=== PATIENT | male | born 1935 | race African-American/Black ===

== ENCOUNTER → 2016-10-14 | Outpatient (CLI) | payer OTHER ==
[~2016-10-14] MED LIST: CARVEDILOL12.5 MG PO; CLONIDINE HCL0.2 M2 PO; COREG3.125 MG PO; DAILY VITE1 EACH PO; DIGOXIN125 MCG PO; DOCUSATE SODIU100 MG PO; DOXAZOSIN MESYLA4 MG PO; HUMALOG100 UNIT/1; IBUPROFEN 400400 M2 PO; IMDUR 60 MG TAB60 M1 PO; ISOSORBIDE MONO30 M1 PO; K-DUR 20 MEQ T20 MEQ PO; LANTUSSOLASTAR; LASIX 40 MG TAB40 M2 PO; LIPITOR40 MG PO; LISINOPRIL10 MG PO; MAPAP500 M1; NORVASC10 MG PO; PLAVIX 75 MG TA75 M1 PO; POTASSIUM20 PO; SERTRALINE HCL50 MG PO; VITAMIN D3400 UNIT PO; ZESTRIL5 MG PO
== END ==
LOC: SPEECH 09:04 → RAD 09:04
DX: R13.12 Dysphagia, oropharyngeal phase (principal)

== ENCOUNTER 2017-04-01 06:15 | Inpatient (IN) | payer OTHER ==
[~2017-04-01] VITALS: Ht 182.9 cm; Wt 92.9 kg
[2017-04-01 06:20] VITALS: BP 117/89
[2017-04-01 06:47] LABS: HEMOGLOBIN 12.7 gm/dL (14.0-18.0); MCH 24.7 pg (26.0-34.0); MCHC 31.8 g/dL (28.0-37.0); MCV 77.6 fL (80.0-100.0); RBC 5.15 mil/uL (4.50-6.00); RDW 15.2 % (10.5-14.5); WBC 10.2 thou/uL (4.0-11.0)
[2017-04-01] MEDS ORDERED: TYLENOL325 MG PO (06:47)
[2017-04-01] MEDS ORDERED: ARICEPT 5 MG TAB5 MG PO (06:48)
[2017-04-01] MEDS ORDERED: VITAMINC500 PO (06:49)
[2017-04-01] MEDS ORDERED: KLOR-CON 1010 MEQ PO (06:50)
[2017-04-01] MEDS ORDERED: BOUDREAUXS28 GM TP (06:52)
[2017-04-01] MEDS ORDERED: ZOLOFT50 MG PO (06:53)
[2017-04-01 06:54] LABS: URINE BILIRUBIN NEGATIVE (Negative); URINE BLOOD NEGATIVE (Negative); URINE CLARITY CLEAR; URINE COLOR YELLOW; URINE GLUCOSE-RANDOM* NEGATIVE (Negative); URINE KETONES NEGATIVE (Negative); URINE LEUKOCYTES-REFLEX NEGATIVE (Negative); URINE NITRITE-REFLEX NEGATIVE (Negative); URINE PROTEIN (DIPSTICK) NEGATIVE (Negative); URINE SPECIFIC GRAVITY 1.015 (1.005-1.035); URINE UROBILINOGEN 0.2 E.U./dl (0.2-1.0)
[2017-04-01 06:57] LABS: CALCIUM 9.5 mg/dL (8.5-10.1); CREATININE 1.3 mg/dL (0.7-1.3); POTASSIUM 3.9 mmol/L (3.5-5.1)
[2017-04-01 07:03] LABS: ALBUMIN 3.2 g/dL (3.4-5.0); TOTAL BILIRUBIN 0.4 mg/dL (<0.1-1.0); TOTAL PROTEIN 6.6 g/dL (6.4-8.2)
[2017-04-01 12:40] VITALS: BP 166/87
[2017-04-01 12:53] VITALS: BP 148/74
[2017-04-01 13:30] VITALS: BP 173/92
[2017-04-01 17:04] VITALS: BP 155/77
[2017-04-01 22:48] VITALS: BP 139/69
[2017-04-02 04:00] VITALS: BP 142/58; BP 163/81
[2017-04-02 07:35] VITALS: BP 153/66
[2017-04-02 16:10] VITALS: BP 160/71
[2017-04-02 20:30] VITALS: BP 166/72
[2017-04-03 04:05] LABS: ABSOLUTE NEUTROPHILS 5.5 thou/uL (1.4-8.2); BASOPHILS 0.4 % (0.0-2.0); EOSINOPHILS 1.8 % (0.0-3.0); HEMATOCRIT 36.1 % (42.0-52.0); HEMOGLOBIN 11.5 gm/dL (14.0-18.0); LYMPHOCYTES 17.6 % (24.0-44.0); MCHC 31.9 g/dL (28.0-37.0); MCV 78.4 fL (80.0-100.0); PLATELET COUNT 142 thou/uL (150-400); POLYS 71.2 % (36.0-66.0); RBC 4.61 mil/uL (4.50-6.00); WBC 7.7 thou/uL (4.0-11.0)
[2017-04-03 04:27] LABS: CALCIUM 8.4 mg/dL (8.5-10.1); POTASSIUM 3.2 mmol/L (3.5-5.1)
[2017-04-03 04:30] VITALS: BP 166/72
[2017-04-03 07:58] VITALS: BP 150/86
[2017-04-03 09:51] VITALS: BP 150/86
[2017-04-03 11:04] LABS: % SATURATION 18 % (20-39); IRON 44 ug/dL (65-175); TIBC 238 ug/dL (250-450)
[2017-04-03 14:35] VITALS: BP 155/75
[2017-04-03 16:14] VITALS: BP 147/77
[2017-04-03 20:47] VITALS: BP 149/67
[2017-04-04] VITALS: BP 143/80
[2017-04-04 03:00] VITALS: BP 176/95
[2017-04-04 07:30] VITALS: BP 141/81
[2017-04-04 15:15] VITALS: BP 160/88
== END 2017-04-04 17:00 | DRG 853 ==
LOC: ER 06:15 → EROBS 08:44 → 4E 08:44
PROVIDERS: Emergency Medicine; Family Medicine; Internal Medicine Gastroenterology
DX: A41.9 Sepsis, unspecified organism (principal); E43 Unspecified severe protein-calorie malnutrition; I69.351 Hemiplegia and hemiparesis following cerebral infarction affecting right dominant side; K55.1 Chronic vascular disorders of intestine; K52.9 Noninfective gastroenteritis and colitis, unspecified; E11.9 Type 2 diabetes mellitus without complications; I50.9 Heart failure, unspecified; Z96.659 Presence of unspecified artificial knee joint; I11.0 Hypertensive heart disease with heart failure; G30.9 Alzheimer's disease, unspecified; F02.80 Dementia in other diseases classified elsewhere, unspecified severity, without behavioral disturbance, psychotic disturbance, mood disturbance, and anxiety; E78.5 Hyperlipidemia, unspecified; I25.10 Atherosclerotic heart disease of native coronary artery without angina pectoris; I48.91 Unspecified atrial fibrillation; N32.9 Bladder disorder, unspecified; N28.89 Other specified disorders of kidney and ureter; Z79.899 Other long term (current) drug therapy; Z95.5 Presence of coronary angioplasty implant and graft; Z28.21 Immunization not carried out because of patient refusal
CPT/HCPCS: 10084

== ENCOUNTER → 2017-05-02 | Outpatient (CLI) | payer OTHER ==
[~2017-05-02] MED LIST changes: +ARICEPT 5 MG TAB5 MG PO; +BOUDREAUXS28 GM TP; +KLOR-CON 1010 MEQ PO; +TYLENOL325 MG PO; +VITAMINC500 PO; +ZOLOFT50 MG PO
== END ==
LOC: CAT 07:19
DX: N28.89 Other specified disorders of kidney and ureter (principal); K76.0 Fatty (change of) liver, not elsewhere classified; R93.422 Abnormal radiologic findings on diagnostic imaging of left kidney

== ENCOUNTER → 2017-11-12 | Outpatient (CLI) | payer OTHER ==
[2017-11-12 09:51] LABS: CREATININE 1.7 mg/dL (0.7-1.3)
== END ==
LOC: CAT 09:19
PROVIDERS: Family Medicine
DX: K42.9 Umbilical hernia without obstruction or gangrene (principal); N28.1 Cyst of kidney, acquired; J90 Pleural effusion, not elsewhere classified; I70.0 Atherosclerosis of aorta; N20.0 Calculus of kidney; D73.4 Cyst of spleen; N40.0 Benign prostatic hyperplasia without lower urinary tract symptoms; N32.9 Bladder disorder, unspecified; M25.78 Osteophyte, vertebrae; M48.061 Spinal stenosis, lumbar region without neurogenic claudication; M48.02 Spinal stenosis, cervical region; I11.0 Hypertensive heart disease with heart failure; I50.9 Heart failure, unspecified; E11.9 Type 2 diabetes mellitus without complications; E78.5 Hyperlipidemia, unspecified; I48.91 Unspecified atrial fibrillation; I25.10 Atherosclerotic heart disease of native coronary artery without angina pectoris; Z79.4 Long term (current) use of insulin

== ENCOUNTER 2018-02-11 16:53 | Inpatient (IN) | payer OTHER ==
[~2018-02-11] VITALS: Ht 175.3 cm; Wt 87.6 kg
[2018-02-11 17:04] VITALS: BP 128/54
[2018-02-11 17:37] LABS: HEMATOCRIT 21.3 % (42.0-52.0); MCH 21.6 pg (26.0-34.0); MCHC 29.7 g/dL (28.0-37.0); MCV 72.7 fL (80.0-100.0); PLATELET COUNT 173 thou/uL (150-400); RBC 2.93 mil/uL (4.50-6.00); RDW 17.5 % (10.5-14.5); WBC 7.4 thou/uL (4.0-11.0)
[2018-02-11 17:40] LABS: HEMOGLOBIN 6.3 gm/dL (14.0-18.0)
[2018-02-11 17:44] LABS: CALCIUM 9.1 mg/dL (8.5-10.1); INR 1.5; POTASSIUM 3.7 mmol/L (3.5-5.1); PROTIME 15.9 Seconds (9.3-11.4)
[2018-02-11 17:50] LABS: ALBUMIN 2.9 g/dL (3.4-5.0); TOTAL BILIRUBIN 0.3 mg/dL (<0.1-1.0); TOTAL PROTEIN 5.7 g/dL (6.4-8.2)
[2018-02-11 18:06] LABS: ABSOLUTE NEUTROPHILS 5.8 thou/uL (1.4-8.2); ANISOCYTOSIS 1+; MICROCYTES 1+
[2018-02-11 18:07] LABS: HYPOCHROMASIA 2+; POLYCHROMASIA OCCASIONAL
[2018-02-11 18:12] VITALS: BP 127/49
[2018-02-11] MEDS ORDERED: ELIQUIS5 MG PO (18:52)
[2018-02-11] MEDS ORDERED: HYDROCODONE-AP1 EAC6 PO (18:54)
[2018-02-11] MEDS ORDERED: ONDANSETRON HCL4 M2 PO (18:55)
[2018-02-11] MEDS ORDERED: CETIRIZINE HCL5 MG PO (18:55)
[2018-02-11] MEDS ORDERED: LEVEMIR SUBQ (18:56)
[2018-02-11] MEDS ORDERED: MAGNESIUM400 MG PO (18:57)
[2018-02-11 19:05] VITALS: BP 120/40
[2018-02-11 19:30] VITALS: BP 136/68
[2018-02-11 20:28] VITALS: BP 153/59; BP 153/63
[2018-02-12] VITALS (7 sets, daily range): BP systolic 137–171; BP diastolic 58–75
[2018-02-12 00:41] LABS: HEMATOCRIT 23.8 % (42.0-52.0); HEMOGLOBIN 7.2 gm/dL (14.0-18.0); MCH 23.1 pg (26.0-34.0); MCHC 30.1 g/dL (28.0-37.0); MCV 76.8 fL (80.0-100.0); PLATELET COUNT 160 thou/uL (150-400); RBC 3.11 mil/uL (4.50-6.00); RDW 19.2 % (10.5-14.5); WBC 7.9 thou/uL (4.0-11.0)
[2018-02-12 00:51] LABS: CALCIUM 8.7 mg/dL (8.5-10.1); CREATININE 1.8 mg/dL (0.7-1.3); MAGNESIUM 1.7 mg/dL (1.8-2.4); POTASSIUM 3.1 mmol/L (3.5-5.1)
[2018-02-12 01:16] LABS: ABSOLUTE NEUTROPHILS 4.7 thou/uL (1.4-8.2); METAMYELOCYTES 1 %
[2018-02-12 01:18] LABS: ANISOCYTOSIS 2+; HYPOCHROMASIA 1+; LARGE PLATELETS RARE; MICROCYTES 1+; PLATELET ESTIMATE NORMAL; POLYCHROMASIA 1+
--- NOTE | 2018-02-12 03:47 | NUR ---
PATIENT IS A DNR. PATIENT IS ALERT TO SELF. PATIENT WILL ASK SAME QUESTIONS MULT TIMES. PATIENT IS INCONTIENT. PATIENT CAN TURN SELF. PATIENT IS WHEELE CHAIR BOUND. PATIENT HAD ONE UNIT OF BLOOD. PATIENT IS ACHS. PATIENT HAS BEEN NPO SENSE MIDNIGHT. PATIENTS LBM WAS THE 26TH. PATIENT HAS SWELLING TO BOTH LOWER EXTREMITIES ALTHOUGH, THE RIGHT IS MORE SWOLLEN. 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 PATIENT HAS A PACEMAKER. PATIENT IS A FIB ON TELE. PATIENT IS RESTING COMFORTABLEY IN BED. WCM. PATIENT IS PROGRESSING TO GOALS.
--- NOTE | 2018-02-12 04:31 | NUR ---
PATIENT DOES HAVE LARGE AMOUNTS OF BLOOD COMING FROM RECUM. PROVIDER AWARE. BP STABLE, HGB 7.3 ONE UNIT OF RBC GIVEN. WCM.
[2018-02-12 07:28] LABS: HEMATOCRIT 23.2 % (42.0-52.0)
--- NOTE | 2018-02-12 10:40 | NUR ---
ASSESSMENT: CM REVIEWED CHART AND MET WITH PATIENT AT THE BEDSIDE. PT WAS ADMITTED WITH LOW HEMOGLOBIN AND GI WAS CONSULTED. 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 PT REPORTS HE NORMALLY USES A WHEELCHAIR AT THE FACILITY. 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 CM ATTEMPTED TO CONTACT LIASON AT [facility] TO NOTIFY AND FAXED UPDATED CLINICAL TO FACILITY. CM ATTEMPTED TO CONTACT PATIENT DAUGHTER/GINA BECKFORD BUT VM WAS LEFT. CM WILL CONTINUE TO FOLLOW TO ASSIST NEEDED.
--- NOTE | 2018-02-12 19:51 | NUR ---
PT CONFUSED. DAUGHTER AT BEDSIDE AND UPDATED. INCONT OF BRN LOOSE STOOL X1 TODAY. STOOL CULTURE SENT. PLAN FOR PT TO BE NPO AFTER MN FOR POSSIBLE FLEX SIG. TURNED Q2 HOURS. INCONTINENT OF LARGE AMOUNTS OF URINE. REPORT GIVEN TO WIRE STRIPPER RN.
[2018-02-13 04:45] VITALS: BP 154/65
--- NOTE | 2018-02-13 07:37 | NUR ---
PATIENT IS ALERT TO SELF. PATIENT IS FORGETFUL. PATIENT HAS BEEN NPO SENSE MIDNIGHT. PATIENT IS BEDREST PATIENT TURNS SELF. PATIENT IS NSR, SA, OR AFIB ON TELE. PATIENT IS ACHS ACCUCHECKS. PAITENT IS INCONTIENT. PATIENT LBM WAS THE . PATIENT IS FROM [employer]. PATIENT IS PENDING FLEX SIG TODAY. PATIENT IS RESTING COMFORTABLEY IN BED. WCM. PATIENT IS PROGERSSING TO GOALS. PATIENT GOT A BATH THIS SHIFT.
[2018-02-13 08:16] LABS: HEMATOCRIT 22.1 % (42.0-52.0); HEMOGLOBIN 6.7 gm/dL (14.0-18.0); MCHC 30.1 g/dL (28.0-37.0); MCV 76.3 fL (80.0-100.0); RBC 2.89 mil/uL (4.50-6.00); RDW 19.7 % (10.5-14.5); WBC 9.2 thou/uL (4.0-11.0)
[2018-02-13 08:19] VITALS: BP 157/66
[2018-02-13 08:23] LABS: CALCIUM 8.4 mg/dL (8.5-10.1); CREATININE 1.5 mg/dL (0.7-1.3); POTASSIUM 3.2 mmol/L (3.5-5.1)
--- NOTE | 2018-02-13 10:14 | NUR ---
Assumed care of patient at 0700. Discussed with GI lab, to clarify plans for flex sig. Labs done, results called, plans to transfuse 1 unit PRBCs as well. Will update family and obtain informed consent.
[2018-02-13 11:46] VITALS: BP 152/66; BP 154/88; BP 155/64
[2018-02-13 13:17] VITALS: BP 173/76
--- NOTE | 2018-02-13 13:56 | NUR ---
ASSUMED CARE AT 1100, SHIFT ASSESSMENT DONE. SHORTLY AFTER REPORT, PATIENT LEFT THE FLOOR FOR A FLEX SIG. HGB THIS AM WAS 6.7, 1 UNIT OF PRBC ORDERED, ADMINSITERED DURING PROCEDURE. PATIENT CAME UP AT 1315. ADVANCED TO CARB CONTROL DIET. DENIES ANY NAUSEA, PAIN AT THIS MOMENT. WILL CONTINUE TO ASSESS AND ASSIST WITH ADLs NEEDED.
--- NOTE | 2018-02-13 15:05 | NUR ---
ON-GOING ASSESSMENT: CM REVIEWED CHART AND SPOKE WITH ATTENDING PHYSICIAN. PATIENT IS POSSIBLE DISCHARGE OVER THE WEEKEND. PT HAD FLEX-SIG TODAY. IF PATIENT IS STABLE TO DISCHARGE OVER THE WEEKEND CONTACT LIASON AT [facility] AT: [phone] TO NOTIFY OF DISCHARGE AND ARRANGE TRANSPORTATION. CALL REPORT TO [facility]: [phone] AND FAX DISCHARGE ORDERS/DISCHARGE SUMMARY TO [phone]. CONTACT PATIENTS MALIKA BECKFORD TO NOTIFY IF PATIENT IS ABLE TO DISCHARGE AT [phone]. PATIENT WILL NEED TO BE SENT WITH A CHART COPY.
[2018-02-13 16:38] VITALS: BP 154/72
[2018-02-13 19:28] VITALS: BP 144/59
[2018-02-14 04:44] VITALS: BP 166/68
--- NOTE | 2018-02-14 05:29 | NUR ---
PT SLEPT COMFORTABLE. INCONTINENT MOST OF THE TIMES . PT REQUESTED CONDOM CATHETER. TELEGRAPH REPEATER INSTALLER APPLIED. CHARGE NOTIFIED. WILL CONTINUE TO FOLLOW POC
[2018-02-14 07:54] VITALS: BP 167/78
[2018-02-14 11:49] VITALS: BP 166/78
[2018-02-14] MEDS ORDERED: NOVOLOG100 UNIT/1 SUBQ (13:23)
[2018-02-14] MEDS ORDERED: ANUCORT-HC25 MG RECTAL (13:23)
[2018-02-14] MEDS ORDERED: PANTOPRAZOLE SO40 M1 PO (13:23)
--- NOTE | 2018-02-14 16:52 | NUR ---
ASSUMED CARE OF PATIENT AT 0700. PT/VITALS STABLE. PATIENT ALERT TO SELF ONLY. ASSESSMENT CHARTED. NO PAIN NOTED. DR. TINOCO PUT IN DISCHARGE ORDERS, CALLED [facility], AND REPORT CALLED TO TOAN AT 1448. LEFT A MESSAGE FOR THE PATIENT'S DAUGHTER, SHAKEEL, ON HER CELL PHONE ([email or web address]). CHART COPY, DISCHARGE SUMMARY, REPORT AND CLOTHES SENT WITH THE PATIENT. TRANSPORT ARRIVED AT 1644 AND TOOK THE PATIENT BACK TO [facility] AT 1644.
--- NOTE | 2018-02-16 16:05 | PATH ---
[facility] [place] [address] PATHOLOGY RPT PROCEDURE Name: KELSEY SON Room #: 362-P DIS IN M.R.#: [id number] Admission: 02/11/18 Date of : 37 Discharge: 02/14/18 Report #: [id number] Path Case #: [id number] [facility] Accession Number: [id number] . 01 Material submitted: . RANDOM RECTAL BX R/O ISCHEMIC COLITIS . 01 Clinical history: . Pre-OP DX: GI bleed Post-OP DX: Proctitis . 02 Diagnosis: Large intestinal mucosa, random rectal rule out infectious, ischemic colitis, endoscopic biopsy: - Focal mild acute cryptitis, please see comment. - Negative for dysplasia or malignancy. . [facility]/02/16/2018 . 02 Comment: Examination shows a scattered rare focus of cryptitis. The lamina propria cellularity is mixed with lymphocytes, plasma cells, eosinophils as well as rare macrophages. The crypts show regenerative and hyperplastic changes. Findings may be suggestive of a resolved episode of colitis, bowel preparation, mucosal prolapse, medication-induced colitis as well as acute diverticulitis. Changes to suggest inflammatory disease or ischemic colitis are not identified. Viral inclusions or parasitic organisms are not identified as well. Please correlate clinically. (IUV:pit 02/16/2018) . 02 Electronically signed: . Mihaela Baez MD, Pathologist NPI- [id number] . 01 Gross description: . Received in formalin labeled "Kelsey Son, random rectal BX, rule out infectious ischemic colitis," is a single segment of watkins soft tissue measuring 0.3 cm in maximum dimension. The specimen is entirely submitted in cassette A1. (TSD; 02/13/2018) TOB/TOB . 02 Pathologist provided ICD-10: K62.89 . 02 CPT . [id number] [place] [address] PATHOLOGY RPT PROCEDURE Name: KELSEY SON Room #: 362-P DIS IN M.R.#: [id number] Admission: 02/11/18 Date of : 37 Discharge: 02/14/18 Report #: [id number] Path Case #: [id number] Specimen Comment: A courtesy copy of this report has been sent to Specimen Comment: [phone], , . Specimen Comment: Report sent to ,DR TINOCO / DR MCKINLEY Performed at: [address], [place], [place] [id number] MD Alon Márquez MD Phone: [phone] Performed at: [address] [id number] MD Mihaela Baez MD Phone: [phone]
== END 2018-02-14 16:51 | DRG 377 ==
LOC: ER 16:53 → 3W 18:08 → EROBS 18:08 → 3W 19:25
PROVIDERS: Internal Medicine Gastroenterology; Nurse Practitioner; Physician Assistant; ADMIT Internal Medicine
PROC: 0DBP8ZX Excision of Rectum, Via Natural or Artificial Opening Endoscopic, Diagnostic (ICD-10-PCS; principal; 2018-02-13)
PROC: 30233N1 Transfusion of Nonautologous Red Blood Cells into Peripheral Vein, Percutaneous Approach (ICD-10-PCS; principal; 2018-02-13)
DX: K92.2 Gastrointestinal hemorrhage, unspecified (principal); N17.0 Acute kidney failure with tubular necrosis; D62 Acute posthemorrhagic anemia; E46 Unspecified protein-calorie malnutrition; I50.42 Chronic combined systolic (congestive) and diastolic (congestive) heart failure; I13.0 Hypertensive heart and chronic kidney disease with heart failure and stage 1 through stage 4 chronic kidney disease, or unspecified chronic kidney disease; I25.10 Atherosclerotic heart disease of native coronary artery without angina pectoris; E78.5 Hyperlipidemia, unspecified; G30.9 Alzheimer's disease, unspecified; F02.80 Dementia in other diseases classified elsewhere, unspecified severity, without behavioral disturbance, psychotic disturbance, mood disturbance, and anxiety; I48.91 Unspecified atrial fibrillation; K62.89 Other specified diseases of anus and rectum; D64.9 Anemia, unspecified; N18.9 Chronic kidney disease, unspecified; Z66 Do not resuscitate; Z96.659 Presence of unspecified artificial knee joint; M62.84 Sarcopenia; I48.2 Chronic atrial fibrillation; E11.22 Type 2 diabetes mellitus with diabetic chronic kidney disease; Z28.21 Immunization not carried out because of patient refusal; Z86.73 Personal history of transient ischemic attack (TIA), and cerebral infarction without residual deficits; Z79.01 Long term (current) use of anticoagulants; Z68.28 Body mass index [BMI] 28.0-28.9, adult
CPT/HCPCS: 10879; 62110; 62900